=== PATIENT | male | born 1975 | race Caucasian/White ===

== ENCOUNTER 2023-07-25 13:18 | Inpatient (IN) | payer OTHER, SELFPAY ==
[2023-07-25] VITALS (13 sets, daily range): BP systolic 123–154; BP diastolic 77–87; PULSE 57–78; RESP 16–24; TEMP 36.4; O2SAT 94–100; BMI 25.9
--- NOTE | 2023-07-25 13:36 | PC.NURSE ---
Pt reports that this same eating then vomiting situation reoccurs approx q 6 months for the past 3 years. Has not had it evaluated. This is the longest episode to date
[2023-07-25 13:55] LABS: Add Manual Diff / Slide Review NO; Basophils Absolute Auto 100 /uL (0-100); Basophils Percent Auto 0.9 % (0-2); Eosinophils Absolute Auto 200 /uL (0-450); Eosinophils Percent Auto 1.5 % (2-4); Hematocrit 38.1 % (41-53); Hemoglobin 13.4 g/dL (13.5-17.5); Lymphocytes Absolute Auto 2600 /uL (1100-4500); Lymphocytes Percent Auto 24.6 % (25-40); Mean Corpuscular HGB Conc 35.2 % (30-36); Mean Corpuscular Hemoglobin 30.5 PG (26-34); Mean Corpuscular Volume 86.6 fL (80-100); Monocytes Absolute Auto 1400 /uL (0-900); Monocytes Percent Auto 13.6 % (3-14); Neutrophils Absolute Auto 6200 /uL (1500-7000); Neutrophils Percent Auto 59.4 % (50-75); Platelet Count 343 X10^3/uL (150-400); Red Blood Cell Count 4.39 X10^6/uL (4.5-5.9); Red Cell Distribution Width 13.2 % (11.6-14.8); White Blood Cell Count 10.5 X10^3/uL (4.5-11.0)
[2023-07-25 14:09] LABS: Alanine Aminotransferase 69 IU/L (<50); Albumin 3.7 g/dL (3.5-5.0); Albumin Globulin Ratio 0.9 (1.0-2.8); Alkaline Phosphatase 279 U/L (38-126); Aspartate Aminotransferase 59 IU/L (17-59); BUN Creatinine Ratio 25.4 (6-22); Bilirubin Total 0.9 mg/dL (0.2-1.3); Blood Urea Nitrogen 18 mg/dL (9-20); Calcium 8.8 mg/dL (8.4-10.2); Carbon Dioxide 27 mmol/L (22-32); Chloride 95 mmol/L (98-107); Estimated Glomerular Filt Rate > 60 mL/min (>60); Globulin 3.9 g/dL (1.7-4.1); Glucose 110 mg/dL (70-100); HEMOLYSIS 21 (0-50); Lipase 97 U/L (23-300); Sodium 131 mmol/L (137-145); Total Protein 7.6 g/dL (6.3-8.2)
--- NOTE | 2023-07-25 14:19 | ED.NAVMDI ---
HPI - Nausea/Vomiting/Diarrhea General Chief complaint: Nausea/Vomiting/Diarrhea Stated complaint: eats then V T-10/ Time Seen by Provider: 07/25/23 13:58 Source: patient Mode of arrival: Ambulatory History of Present Illness HPI Narrative: Patient here with . Complains 11 days of epigastric bloating discomfort with nausea and vomiting, nonbloody. No diarrhea. No cough cold or congestion. Symptoms worse with eating or drinking. Worse with laying flat. Feels better sitting up. Patient has been taking Pepcid and Prilosec. Patient states he is had for 5 of this episode in the past 3 years. Has not seen anyone for this problem. No history of endoscopy. No formal diagnosis of acid reflux or gastritis. Patient in no distress at this time. Denies any back pain or chest pain. Related Data Home Medications Medication Instructions Recorded Confirmed propranolol 10 mg tablet 30 mg PO DAILY 07/25/23 07/25/23 Previous Rx's Medication Instructions Recorded hydrochlorothiazide 25 mg tablet 25 mg PO QDAY #90 tabs 09/27/16 lisinopril 20 mg tablet 20 mg PO QDAY #90 tabs 09/27/16 Allergies Allergy/AdvReac Type Severity Reaction Status Date / Time No Known Drug Allergies Allergy Verified 07/25/23 13:30 Review of Systems Review of Systems Narrative: GENERAL: negative chills, fatigue, malaise, fever, sweats. HEENT: negative sinus pain, ear pain, sore throat RESPIRATORY: negative dyspnea, cough CARDIOVASCULAR: negative chest pain, palpitations GASTROINTESTINAL: Positive nausea, vomiting, abdominal pain, negative diarrhea : negative dysuria, frequency, hematuria MUSCULOSKELETAL: negative muscle or bony pain SKIN: negative rash, skin lesions NEUROLOGIC: negative weakness, numbness ROS Unobtainable: All systems reviewed & are unremarkable except as noted in HPI and below Patient History Surgical History History of cataract removal with insertion of prosthetic lens Family History Father Essential hypertension Smoker High cholesterol Mother Age: 79 Essential hypertension Heart disease Social History household members: spouse Smoking Status: Current every day smoker Smoking Status: Current every day smoker tobacco type: vaping Substance Use Type: does not use Exam Narrative Exam Narrative: GENERAL: in no distress, not toxic not dyspneic HEAD: Normocephalic. EYES: Pupils equal round ENT: Mucous membranes moist. NECK: Trachea midline. CARDIOVASCULAR: Regular rate and rhythm RESPIRATORY: Clear to auscultation. Breath sounds equal bilaterally. No wheezes, rales, or rhonchi. GASTROINTESTINAL: Abdomen soft, and flat. Mild epigastric tenderness. No pain out of proportion to exam.. No peritoneal signs. Bowel sounds are present. No CVA tenderness, slight tympanic on percussion EXTREMITIES: No gross deformities. BACK: No flank tenderness. NEURO: AOx4. SKIN: Warm and dry PSYCH: Not anxious, is cooperative Initial Vital Signs Initial Vital Signs: Vital Signs Temperature 97.5 F L 07/25/23 13:22 Pulse Rate 69 07/25/23 13:22 Respiratory Rate 16 07/25/23 13:22 Blood Pressure 149/81 H 07/25/23 13:22 Pulse Oximetry 97 07/25/23 13:22 Oxygen Delivery Method Room Air 07/25/23 13:22 Course Orders Ordered: Hydrocodone Bitart/Acetaminophen (Hydrocodone/Acet 5/325 Tablet) 1 tab PO Q4H PRN PRN Reason: Pain, Moderate (4-6) Hydrocodone Bitart/Acetaminophen (Hydrocodone/Acet 5/325 Tablet) 2 tab PO Q4H PRN PRN Reason: Pain, Severe (7-10) Hydromorphone HCl (Hydromorphone 0.5 Mg Inj) 0.5 mg IV Q2H PRN PRN Reason: Pain, Severe (7-10) Lactated Ringer's (Lactated Ringers) 1,000 mls @ 100 mls/hr IV CONT [facility] Last Infusion: 07/26/23 05:37 Dose: Infused Documented By: Admin: 07/25/23 18:56 Dose: 100 mls/hr Documented By: BT Ibuprofen (Ibuprofen 600 Mg Tablet) 600 mg PO Q6H PRN PRN Reason: Fever/Mild Pain (1-3) Labetalol HCl (Labetalol 20 Mg/4 Ml Syringe) 10 mg IV Q4H [facility] Last Admin: 07/26/23 05:54 Dose: Not Given Documented By: Admin: 07/26/23 02:29 Dose: Not Given Documented By: Admin: 07/25/23 21:42 Dose: 10 mg Documented By: AT Naloxone HCl (Naloxone 0.4 Mg/Ml Vial) 0.2 mg IV Q2MIN PRN PRN Reason: Opiate Reversal Ondansetron HCl (Ondansetron 4 Mg/2 Ml Inj) 4 mg IV Q8HR PRN PRN Reason: Nausea And Vomiting Discontinued Medications Al Hydrox/Mg Hydrox/Simethicone 20 ml/ Lidocaine HCl 15 ml 0 ml PO NOW ONE Stop: 07/25/23 14:19 Last Admin: 07/25/23 14:39 Dose: 35 ml Documented By: USHA Sodium Chloride (Normal Saline 0.9%) 1,000 mls @ 1,000 mls/hr IV BOLUS ONE Stop: 07/25/23 15:17 Last Infusion: 07/25/23 16:21 Dose: Infused Documented By: Admin: 07/25/23 14:40 Dose: 1,000 mls/hr Documented By: USHA POTASSIUM CHLORIDE IN WATER (Potassium Cl 10 Meq/100 Ml K[place]) 10 meq in 100 mls @ 100 mls/hr IV Q1H MARY Stop: 07/25/23 16:29 Last Infusion: 07/25/23 17:14 Dose: Infused Documented By: Admin: 07/25/23 15:32 Dose: 100 mls/hr Documented By: Infusion: 07/25/23 15:32 Dose: Infused Documented By: Admin: 07/25/23 14:39 Dose: 100 mls/hr Documented By: USHA Labetalol HCl (Labetalol 100 Mg/20ml Mdv) 10 mg IV Q4H MARY Last Admin: 07/26/23 07:24 Dose: Not Given Documented By: BT Labetalol HCl (Labetalol 20 Mg/4 Ml Syringe) 10 mg IV Q4H MARY Ondansetron HCl (Ondansetron 4 Mg Odt) 4 mg PO NOW PRN PRN Reason: Nausea And Vomiting Ondansetron HCl (Ondansetron 4 Mg/2 Ml Inj) 4 mg IV NOW PRN PRN Reason: Nausea And Vomiting Vital Signs Vital signs: Vital Signs - 8 hr 07/25/23 13:22 07/25/23 13:32 07/25/23 13:39 Temperature 97.5 F L Pulse Rate 69 60 Respiratory Rate 16 20 Blood Pressure 149/81 H 124/78 Pulse Oximetry 97 99 Oxygen Delivery Method Room Air 07/25/23 13:39 07/25/23 14:00 07/25/23 14:00 Temperature Pulse Rate 58 L 59 L Respiratory Rate 21 24 Blood Pressure 123/77 Pulse Oximetry 96 94 Oxygen Delivery Method 07/25/23 14:42 07/25/23 15:00 07/25/23 15:30 Temperature Pulse Rate 70 61 58 L Respiratory Rate 21 21 Blood Pressure Pulse Oximetry 99 97 Oxygen Delivery Method 07/25/23 16:00 Temperature Pulse Rate 57 L Respiratory Rate 21 Blood Pressure Pulse Oximetry 96 Oxygen Delivery Method MDM - Nausea/Vomiting/Diarrhea Lab Data 07/26/23 05:20 07/26/23 05:20 Labs: Lab Results 07/25/23 07/25/23 Range/Units 13:40 14:40 WBC 10.5 (4.5-11.0) X10^3/uL RBC 4.39 L (4.5-5.9) X10^6/uL Hgb 13.4 L (13.5-17.5) g/dL Hct 38.1 L (41-53) % MCV 86.6 (80-100) fL MCH 30.5 (26-34) PG MCHC 35.2 (30-36) % RDW 13.2 (11.6-14.8) % Plt Count 343 (150-400) X10^3/uL Neut % (Auto) 59.4 (50-75) % Lymph % (Auto) 24.6 L (25-40) % [place] % (Auto) 13.6 (3-14) % Eos % (Auto) 1.5 L (2-4) % Baso % (Auto) 0.9 (0-2) % Neut # (Auto) 6200 (2244-7627) /uL Lymph # (Auto) 2600 (7763-3775) /uL [place] # (Auto) 1400 H (0-900) /uL Eos # (Auto) 200 (0-450) /uL Baso # (Auto) 100 (0-100) /uL Sodium 131 L (137-145) mmol/L Potassium 2.7 L* (3.4-5.1) mmol/L Chloride 95 L (98-107) mmol/L Carbon Dioxide 27 (22-32) mmol/L BUN 18 (9-20) mg/dL Creatinine 0.71 (0.66-1.25) mg/dL Estimated GFR > 60 (>60) mL/min BUN/Creatinine Ratio 25.4 H (6-22) Glucose 110 H (70-100) mg/dL Calcium 8.8 (8.4-10.2) mg/dL Total Bilirubin 0.9 (0.2-1.3) mg/dL AST 59 (17-59) IU/L ALT 69 H (<50) IU/L Alkaline Phosphatase 279 H (38-126) U/L Total Protein 7.6 (6.3-8.2) g/dL Albumin 3.7 (3.5-5.0) g/dL Globulin 3.9 (1.7-4.1) g/dL Albumin/Globulin Ratio 0.9 L (1.0-2.8) Lipase 97 (23-300) U/L Ur Bilirubin Confirm Positive H (Negative) Urine RBC 0-1/hpf (0-5/HPF) Urine WBC 10-30/hpf H (0-5/HPF) Ur Squamous Epith Cells 0-1 /hpf (0-5/HPF) Urine Bacteria Few (2-10) H (None) Urine Dip Bedside Urine Glucose Negative Bedside Urine Bilirubin +++ 4 Bedside Urine Ketone +/- 5 Urine Specific [place] 1.015 Bedside Urine Occult Blood - Negative Bedside Urine pH 6.0 Bedside Urine Protein + 30 Bedside Urine Urobilinogen - Negative Bedside Urine Nitrite - Negative Bedside Urine Leukocytes +/- [address] scan - abdomen/pelvis: Radiologist's Impression: [address] [address] [address] Scan Report Signed Patient: Chi Schaefer MR#: [id number] : 1975 Acct:[id number] Age/Sex: 48 / M Date of Service: 07/25/23 Loc: ED Accession Number: [id number] Procedure: CT abdomen pelvis w con Ordering Provider: Terell Adams MD PROCEDURE: CT ABDOMEN PELVIS W CON INDICATIONS: IV contrast only/epigastric pain/vomiting TECHNIQUE: After the administration of intravenous contrast, axial sections acquired from the lung bases to the pubic symphysis. Coronal and sagittal reformats were performed. For radiation dose reduction, the following was used: automated exposure control, adjustment of mA and/or kV according to patient size. COMPARISON: None. FINDINGS: Image quality: Good Lower chest: Basal scarring and atelectasis. Mildly patulous distal esophagus is wall thickening, nonspecific appearance. Heart size is at the upper limit of normal. Solid organs: The liver appears unremarkable. Gallbladder is unremarkable. No pathologic dilation of the biliary system or pancreatic duct. No splenomegaly. Incidental 1.9 cm left adrenal nodule. No hydronephrosis. Vessels and lymph nodes: No abdominal aortic aneurysm. The main portal vein appears patent. No pathologic lymph nodes by size criteria. Bowel and peritoneum: Moderately dilated loops of small bowel. There is transition to under distended bowel in the right lower quadrant (coronal image 34). Focal mesenteric edema is present in this location. No drainable fluid collection. There is also mild wall thickening in this loop of bowel. Body wall: Small fat containing inguinal hernias Pelvis: Bladder is under distended. Bones: Degenerative changes, no acute or suspicious osseous finding. IMPRESSION: Small bowel obstruction. There is transition to under distended bowel in the right lower quadrant. Near the area transition, there is mild focal wall thickening and mesenteric edema. Consider surgical consultation. Incidental 1.9 cm adrenal nodule, consider nonurgent adrenal protocol imaging to confirm whether this is an adenoma. Other findings as above Dictated by: Mahesh Rodney M.D. on 07/25/2023 at 15:07 Approved by: Mahesh Rodney M.D. on 07/25/2023 at 15:13 X-ray abdomen: Radiologist's Impression: [address] [address] XRay Report Signed Patient: Chi Schaefer MR#: [id number] : 1975 Acct:[id number] Age/Sex: 48 / M Date of Service: 07/25/23 Loc: 215-1 Accession Number: [id number] Procedure: XR abdomen 1V Ordering Provider: Terell Adams MD PROCEDURE: XR ABDOMEN 1V INDICATIONS: Nasogastric tube insertion TECHNIQUE: One view of the abdomen acquired. COMPARISON: None. FINDINGS: Surgical changes and devices: NG tube in appropriate position with the side hole and distal and in the left upper quadrant below the diaphragm. Bowel: Bowel gas gas pattern suggests small bowel dilatation. Soft tissues: No suspicious abdominal calcifications. Visualized solid organ contours appear normal in size. Bones: No suspicious bony lesions. IMPRESSION: Appropriate position of NG tube. Dictated by: Angela Penn M.D. on 07/25/2023 at 18:47 Approved by: Angela Penn M.D. on 07/25/2023 at 18:47 [facility] Narrative Medical decision making narrative: Patient here with . Complains 11 days of epigastric bloating discomfort with nausea and vomiting, nonbloody. No diarrhea. No cough cold or congestion. Symptoms worse with eating or drinking. Worse with laying flat. Feels better sitting up. Patient has been taking Pepcid and Prilosec. Patient states he is had for 5 of this episode in the past 3 years. Has not seen anyone for this problem. No history of endoscopy. No formal diagnosis of acid reflux or gastritis. Patient in no distress at this time. Denies any back pain or chest pain. After history and exam CBC CMP lipase EKG CT abdomen pelvis [facility] CC: Abdominal pain Complicating co-morbidities: Likely history of GERD Data collected from: Patient and Medical records reviewed: No recent visit for this complaint Differential considered: Includes but not limited to pancreatitis acid reflux gastritis bowel obstruction Exam documented above, pertinent findings include: Mild epigastric tenderness Lab Test results independently reviewed as above. Pertinent findings: WBC 10.5 hemoglobin 13.4 platelets 343 sodium 131 potassium 2.7 BUN 18 creatinine 0.71 AST 59 ALT 69, alkaline phosphatase 279 Independently reviewed EKG sinus bradycardia rate [address] elevation or depression. Prolonged QT present QT 524 QTC 510 Imaging studies independently reviewed: CT abdomen pelvis small-bowel obstruction present X-ray abdomen appropriate position of the NG tube Consultations: 5:[address] Vega, general surgery, who would like patient to have NG tube. He will admit patient Treatments: Potassium chloride, normal saline Re-evaluations: 4:15 p.m. updated patient results. Small-bowel obstruction present. He does understand agrees for admission. No active vomiting. No NG tube at this time. Discussion: Appropriate for admission. Patient will need observation and possible surgical intervention for small bowel obstruction. Pain is controlled. No vomiting in the emergency department. Patient agrees for admission. Diagnosis: Small-bowel obstruction hypokalemia Discharge Plan Departure Patient Disposition: Admitted As Inpatient Clinical Impression: Small bowel obstruction, Acute hypokalemia Admit Date/Time: 07/25/23 17:13 Admit Provider: Gordon Vega
[2023-07-25 14:22] LABS: Potassium 2.7 mmol/L (3.4-5.1)
[2023-07-25] MEDS: MAG HYDROX/ALUMINUM/SIMETH SUS 20 ML, LIDOCAINE VISCOUS 2% 15 ML PO (14:39)
[2023-07-25] MEDS: POTASSIUM CHLORIDE IN WATER 10 MEQ/100 ML PIGGYBACK 100 MEQ IV ×2 (14:39→15:32)
[2023-07-25] MEDS: SODIUM CHLORIDE 0.9% 1,000 ML 1000 ML IV (14:40)
[2023-07-25 15:17] LABS: Bacteria Urine Few (2-10); RBC Urine 0-1/HPF (0-5/HPF); Squamous Epithelial Cell Urine 0-1 /HPF (0-5/HPF); WBC Urine 10-30/HPF (0-5/HPF)
[2023-07-25 15:18] LABS: Ictotest Urine Positive (Negative)
--- NOTE | 2023-07-25 17:12 | DI.RAD.S_ITS ---
PROCEDURE: XR ABDOMEN 1V INDICATIONS: Nasogastric tube insertion TECHNIQUE: One view of the abdomen acquired. COMPARISON: None. FINDINGS: Surgical changes and devices: NG tube in appropriate position with the side hole and distal and in the left upper quadrant below the diaphragm. Bowel: Bowel gas gas pattern suggests small bowel dilatation. Soft tissues: No suspicious abdominal calcifications. Visualized solid organ contours appear normal in size. Bones: No suspicious bony lesions. IMPRESSION: Appropriate position of NG tube. Dictated by: Angela Penn M.D. on 07/25/2023 at 18:47 Approved by: Angela Penn M.D. on 07/25/2023 at 18:47
--- NOTE | 2023-07-25 18:35 | PM.HP.1 ---
History of Present Illness History of Present Illness Date Patient Seen: 07/25/23 Time Patient Seen: 18:35 Chief complaint: eats then V T-10/SOB Narrative: Chi Schaefer is a 48-year-old man who presented to the ER today with about 10 days of generalized abdominal pain, nausea and vomiting. He states that he is had episodes like this several times over the past several years and it is usually associated with binge eating after he gets back [place] months. He reports that he has had some bowel function recently including some flatus but not much. Normally he has regular bowel movements without mucus. In the ER a CT was performed which was suggestive of a small-bowel obstruction. He has never had any prior surgeries. [facility] Surgical History History of cataract removal with insertion of prosthetic lens Family History Father Essential hypertension Smoker High cholesterol Mother Age: 79 Essential hypertension Heart disease Social History Smoking Status: Current every day smoker Meds Home Medications and Allergies Home Medications Medication Instructions Recorded Confirmed Type hydrochlorothiazide 25 mg tablet 25 mg PO QDAY #90 tabs 09/27/16 Rx lisinopril 20 mg tablet 20 mg PO QDAY #90 tabs 09/27/16 Rx Allergies Allergy/AdvReac Type Severity Reaction Status Date / Time No Known Drug Allergies Allergy Verified 07/25/23 13:30 Exam Vital Signs (past 8 hours): - 07/25/23 13:22 07/25/23 13:32 07/25/23 13:39 Temperature 97.5 F L Pulse Rate 69 60 Respiratory Rate 16 20 Blood Pressure 149/81 H 124/78 Pulse Oximetry 97 99 Oxygen Delivery Method Room Air 07/25/23 13:39 07/25/23 14:00 07/25/23 14:00 Temperature Pulse Rate 58 L 59 L Respiratory Rate 21 24 Blood Pressure 123/77 Pulse Oximetry 96 94 Oxygen Delivery Method 07/25/23 14:42 07/25/23 15:00 07/25/23 15:30 Temperature Pulse Rate 70 61 58 L Respiratory Rate 21 21 Blood Pressure Pulse Oximetry 99 97 Oxygen Delivery Method 07/25/23 16:00 07/25/23 16:30 07/25/23 17:00 Temperature Pulse Rate 57 L 64 68 Respiratory Rate 21 24 24 Blood Pressure Pulse Oximetry 96 100 100 Oxygen Delivery Method 07/25/23 18:00 Temperature Pulse Rate 78 Respiratory Rate 22 Blood Pressure Pulse Oximetry 99 Oxygen Delivery Method Oxygen Delivery Method Room Air Narrative Exam Narrative: Abdomen soft, moderately distended, nontender Objective Labs 07/25/23 13:40 07/25/23 13:40 Labs: Laboratory Results - last 24 hr 07/25/23 07/25/23 13:40 14:40 WBC 10.5 RBC 4.39 L Hgb 13.4 L Hct 38.1 L MCV 86.6 MCH 30.5 MCHC 35.2 RDW 13.2 Plt Count 343 Neut % (Auto) 59.4 Lymph % (Auto) 24.6 L [place] % (Auto) 13.6 Eos % (Auto) 1.5 L Baso % (Auto) 0.9 Neut # (Auto) 6200 Lymph # (Auto) 2600 [place] # (Auto) 1400 H Eos # (Auto) 200 Baso # (Auto) 100 Sodium 131 L Potassium 2.7 L* Chloride 95 L Carbon Dioxide 27 BUN 18 Creatinine 0.71 Estimated GFR > 60 BUN/Creatinine Ratio 25.4 H Glucose 110 H Calcium 8.8 Total Bilirubin 0.9 AST 59 ALT 69 H Alkaline Phosphatase 279 H Total Protein 7.6 Albumin 3.7 Globulin 3.9 Albumin/Globulin Ratio 0.9 L Lipase 97 Ur Bilirubin Confirm Positive H Urine RBC 0-1/hpf Urine WBC 10-30/hpf H Ur Squamous Epith Cells 0-1 /hpf Urine Bacteria Few (2-10) H Assessment & Plan Assessment and plan (1) Small bowel obstruction: Status: Acute Plan Chi is a 48-year-old man who appears to have small bowel obstruction a virgin abdomen. An NG tube has been placed. If he is not better in the morning I recommend we proceed with a diagnostic laparoscopy and possible exploratory laparotomy.
[2023-07-25] MEDS: LACTATED RINGERS 1,000 ML 100 ML IV (18:56)
[2023-07-25] MEDS: LABETALOL 20 MG/4 ML SYRINGE 10 MG IV (21:42)
[2023-07-26 02:34] VITALS: BP 130/74; PULSE 75; RESP 17; TEMP 36.3; O2SAT 96
[2023-07-26 02:39] VITALS: BP 130/74
[2023-07-26 05:48] LABS: Add Manual Diff / Slide Review NO; Basophils Absolute Auto 0 /uL (0-100); Basophils Percent Auto 0.4 % (0-2); Eosinophils Absolute Auto 100 /uL (0-450); Eosinophils Percent Auto 1.1 % (2-4); Hematocrit 36.1 % (41-53); Hemoglobin 12.6 g/dL (13.5-17.5); Lymphocytes Absolute Auto 2400 /uL (1100-4500); Lymphocytes Percent Auto 22.2 % (25-40); Mean Corpuscular Volume 88.7 fL (80-100); Monocytes Absolute Auto 1200 /uL (0-900); Monocytes Percent Auto 11.1 % (3-14); Neutrophils Absolute Auto 7000 /uL (1500-7000); Neutrophils Percent Auto 65.2 % (50-75); Platelet Count 314 X10^3/uL (150-400); Red Blood Cell Count 4.07 X10^6/uL (4.5-5.9); Red Cell Distribution Width 13.3 % (11.6-14.8); White Blood Cell Count 10.8 X10^3/uL (4.5-11.0)
[2023-07-26 06:42] LABS: BUN Creatinine Ratio 23.2 (6-22); Blood Urea Nitrogen 16 mg/dL (9-20); Calcium 8.6 mg/dL (8.4-10.2); Carbon Dioxide 27 mmol/L (22-32); Chloride 96 mmol/L (98-107); Estimated Glomerular Filt Rate > 60 mL/min (>60); Glucose 102 mg/dL (70-100); HEMOLYSIS < 15 (0-50); Potassium 2.8 mmol/L (3.4-5.1); Sodium 135 mmol/L (137-145)
[2023-07-26] MEDS: POTASSIUM CHLORIDE IN WATER 10 MEQ/100 ML PIGGYBACK 100 MEQ IV ×6 (08:04→13:26)
[2023-07-26 08:48] VITALS: BP 158/84; PULSE 65; RESP 16; TEMP 36.5; O2SAT 96
[2023-07-26 10:05] VITALS: BP 158/84; PULSE 65
[2023-07-26] MEDS: LABETALOL 20 MG/4 ML SYRINGE 10 MG IV ×2 (10:05→14:03)
--- NOTE | 2023-07-26 13:49 | PM.PN.1 ---
Subjective Subjective Date Patient Seen: 07/26/23 Time Patient Seen: 13:49 Interval history: Chi did very well overnight with no abdominal pain or nausea. He had just over 200 cc out of the NG tube. He has had some bowel movement and flatus. His only complaint is the NG tube Exam Vital Signs (past 8 hours): - 07/26/23 08:48 07/26/23 10:05 Temperature 97.7 F Pulse Rate 65 65 Respiratory Rate 16 Blood Pressure 158/84 H 158/84 H Pulse Oximetry 96 Oxygen Delivery Method Room Air Narrative Exam Narrative: Abdomen soft nontender Objective Labs 07/26/23 05:20 07/26/23 05:20 Labs: Laboratory Results - last 24 hr 07/25/23 07/25/23 07/26/23 13:40 14:40 05:20 WBC 10.5 10.8 RBC 4.39 L 4.07 L Hgb 13.4 L 12.6 L Hct 38.1 L 36.1 L MCV 86.6 88.7 MCH 30.5 31.0 MCHC 35.2 35.0 RDW 13.2 13.3 Plt Count 343 314 Neut % (Auto) 59.4 65.2 Lymph % (Auto) 24.6 L 22.2 L [place] % (Auto) 13.6 11.1 Eos % (Auto) 1.5 L 1.1 L Baso % (Auto) 0.9 0.4 Neut # (Auto) 6200 7000 Lymph # (Auto) 2600 2400 [place] # (Auto) 1400 H 1200 H Eos # (Auto) 200 100 Baso # (Auto) 100 0 Sodium 131 L 135 L Potassium 2.7 L* 2.8 L Chloride 95 L 96 L Carbon Dioxide 27 27 BUN 18 16 Creatinine 0.71 0.69 Estimated GFR > 60 > 60 BUN/Creatinine Ratio 25.4 H 23.2 H Glucose 110 H 102 H Calcium 8.8 8.6 Total Bilirubin 0.9 AST 59 ALT 69 H Alkaline Phosphatase 279 H Total Protein 7.6 Albumin 3.7 Globulin 3.9 Albumin/Globulin Ratio 0.9 L Lipase 97 Ur Bilirubin Confirm Positive H Urine RBC 0-1/hpf Urine WBC 10-30/hpf H Ur Squamous Epith Cells 0-1 /hpf Urine Bacteria Few (2-10) H PFSH Surgical History History of cataract removal with insertion of prosthetic lens Family History Father Essential hypertension Smoker High cholesterol Mother Age: 79 Essential hypertension Heart disease Social History household members: spouse Smoking Status: Current every day smoker Assessment & Plan Assessment and plan (1) Small bowel obstruction: Status: Acute Plan Obstruction seems to have resolved. DC NG tube and start clears. If he is able to advance his diet he could go home and follow up with me as an outpatient.
[2023-07-26 14:03] VITALS: BP 143/90; PULSE 64
[2023-07-26 15:57] LABS: Blood Urea Nitrogen 12 mg/dL (9-20); Calcium 8.4 mg/dL (8.4-10.2); Carbon Dioxide 25 mmol/L (22-32); Chloride 98 mmol/L (98-107); Estimated Glomerular Filt Rate > 60 mL/min (>60); Glucose 97 mg/dL (70-100); HEMOLYSIS < 15 (0-50); Potassium 3.2 mmol/L (3.4-5.1); Sodium 133 mmol/L (137-145)
[2023-07-26 16:41] VITALS: BP 159/91; PULSE 71; TEMP 36.6; O2SAT 99
[2023-07-26] MEDS: POTASSIUM CHLORIDE 20 MEQ TAB 40 MEQ PO (16:42)
--- NOTE | 2023-08-02 15:40 | P.DS_ITS ---
History of Present Illness History of Present Illness Chief complaint: eats then V T-10/SOB Narrative: Chi Schaefer is a 48-year-old man who presented to the ER today with about 10 days of generalized abdominal pain, nausea and vomiting. He states that he is had episodes like this several times over the past several years and it is usually associated with binge eating after he gets back from being [place] sea [place] for several months. He reports that he has had some bowel function recently including some flatus but not much. Normally he has regular bowel movements without mucus. In the ER a CT was performed which was suggestive of a small-bowel obstruction. He has never had any prior surgeries. Discharge Providers Provider Date of admission: 07/25/23 17:13 Discharge Date: 07/26/23 Primary care physician: Doctor Mary MD Discharge provider: Gordon Vega MD Summary Hospital Course Discharge Diagnosis: Small bowel resection, resolved Hospital Course: The patient was admitted with a diagnosis of a small-bowel obstruction. He would an NG-tube placed. By the next day he was passing bowel movements and flatus. The NG tube was removed and he was able to tolerate a diet. His sodium was between 130 and 132 but he had no clinical signs of hyponatremia. He was discharged home with instructions to follow-up as an outpatient. Exam Vital Signs (past 8 hours): Oxygen Delivery Method Room Air Objective Labs 07/26/23 05:20 07/26/23 15:39 [facility] Surgical History History of cataract removal with insertion of prosthetic lens Family History Father Essential hypertension Smoker High cholesterol Mother Age: 79 Essential hypertension Heart disease Social History household members: spouse Smoking Status: Current every day smoker Discharge Plan Discharge Plan Patient Disposition: Home Provider Discharge Comment: Schedule a follow up appointment with [facility] Discharge orders & Medications Prescriptions: Continued lisinopril 20 MG tablet 20 mg PO QDAY Qty: 90 1RF hydrochlorothiazide 25 MG tablet 25 mg PO QDAY Qty: 90 1RF propranolol 10 mg tablet 30 mg PO DAILY Follow up/Referrals: Doctor Hernandez MD [Primary Care Provider] - Visit Report/Discharge Packet Instructions: DI for Small Bowel Obstruction, DI for Hypokalemia Stand Alone Forms: Patient Portal/API, Stroke Signs & Symptoms Discharge Data Primary Care Provider: Miscellaneous,Doctor Discharges patient from system. Discharge Date/Time: 07/26/23 18:56
== END 2023-07-26 18:56 | disposition home or self-care (01) | DRG 390 ==
LOC: ED 16:25 → AC 17:14
PROVIDERS: Admitting Provider Surgery; Emergency Provider Emergency Medicine; Family Provider Ophthalmology; Referring Provider Emergency Medicine; Visit Provider Surgery
DX: K56.609 Unspecified intestinal obstruction, unspecified as to partial versus complete obstruction (principal); E87.6 Hypokalemia; F17.210 Nicotine dependence, cigarettes, uncomplicated
CPT/HCPCS: 36415; 74018; 74177; 80048; 80053; 81003; 81015; 83690; 85025; 87086; 93005; 96365; 99221; 99238; 99284; Q9967

== ENCOUNTER → 2023-08-23 09:39 | Outpatient (CLI) | payer OTHER, SELFPAY ==
[2023-07-25 19:30] VITALS: BMI 25.9
--- NOTE | 2023-08-23 09:39 | DI.CT.S_ITS ---
PROCEDURE: CT ABDOMEN PELVIS W CON INDICATIONS: follow up from last CT TECHNIQUE: After the administration of oral and intravenous contrast, axial sections were acquired from the lung bases to the pubic symphysis. Coronal and sagittal reformats were performed. For radiation dose reduction, the following was used: automated exposure control, adjustment of mA and/or kV according to patient size. COMPARISON:[facility], CT, CT ABDOMEN PELVIS W CON, 07/25/2023, 14:26. FINDINGS: Image quality: Excellent. Lung bases: Unremarkable. Heart: No significant findings. ABDOMEN: Liver: Unremarkable. Gallbladder: Unremarkable. Biliary ducts: Unremarkable. Pancreas: Unremarkable. Spleen: Unremarkable. 1.9 cm indeterminate left adrenal nodule again noted. Kidneys and Ureters: Unremarkable. Stomach and Bowel: Bowel gas pattern has improved, as the small bowel was quite dilated previously. There continues to be, however, a partial small bowel obstruction in the left abdomen, apparently secondary to adhesions or desmoplastic reaction in the mesentery. Reference image 58 of axial series 2. The presumed adhesions are noted on image 58/2. There is a transition point at this level. Just proximal to this, a loop is dilated, measuring 4.1 cm in diameter. Of note, most of the jejunum is not dilated. Rare diverticulosis. Colon otherwise unremarkable. Normal appendix. Peritoneum: No abnormal intraperitoneal fluid. No free air. Ventral Wall: No hernia. Abdominal Nodes: No retroperitoneal or mesenteric adenopathy by size criteria. Vessels: Aorta and inferior vena cava are normal in size. PELVIS: Pelvic Organs: Unremarkable. Bladder: Unremarkable. Pelvic Nodes: No enlarged lymph nodes. Miscellaneous: Small fat containing left inguinal hernia. Bones: Mild lumbar degenerative change. No lytic or blastic bony lesions. No compression fractures. IMPRESSION: 1. Recurrent or residual partial small bowel obstruction, likely secondary to adhesions or desmoplastic reaction in the mesentery. The appearance of the small bowel is definitely improved compared to the previous study. 2. 1.9 cm indeterminate left adrenal nodule again noted. Dictated by: Waqas Emerson M.D. on 08/23/2023 at 13:20 Approved by: Waqas Emerson M.D. on 08/23/2023 at 13:29
== END ==
LOC: CT 09:39
PROVIDERS: Family Provider Ophthalmology; Referring Provider Surgery; Visit Provider Surgery
DX: K56.609 Unspecified intestinal obstruction, unspecified as to partial versus complete obstruction (principal); E27.9 Disorder of adrenal gland, unspecified
CPT/HCPCS: 74177

== ENCOUNTER 2023-09-25 12:28 | Inpatient (IN) | payer OTHER, SELFPAY ==
[2023-07-25 19:30] VITALS: BMI 25.9
[2023-09-25] VITALS (10 sets, daily range): BP systolic 138–183; BP diastolic 88–124; PULSE 52–64; RESP 12–19; TEMP 36.1–36.6; O2SAT 93–99; BMI 25.1
--- NOTE | 2023-09-25 | PATH_ITS ---
[facility] Accession Number: [id number] No. of containers..02 Tissue . 01 Material submitted: . PART A: MESENTERIC - MESENTERIC TISSUE PART B: small bowel - SMALL BOWEL . 01 Diagnosis: A. Mesenteric Tissue, Biopsies: Fibroadipose tissue with no diagnostic abnormality. No evidence of neoplasm. . B. Small Bowel, Segmental Resection: Segment of small bowel with the following features: Multifocal punctate mucosal ulcers. Serosal adhesions. Mesenteric firmness with fibrosis and focal fat necrosis; no evidence of neoplasm. Thirteen mesenteric lymph nodes with reactive follicular hyperplasia and features of lymphatic outflow obstruction; no evidence of neoplasm. Negative for granulomas, dysplasia or malignancy. Please see comment. V 10/05/2023 1729 Local . 01 Comment: The area of mesenteric firmness is entirely submitted, and no neoplasm is identified. . The overall histologic findings raise a differential diagnosis including infection, drug/toxin-induced injury, volvulus, and, in the appropriate clinical setting, Crohn's disease. . As part of routine quality analyst, Dr. Woodson, hematopathologist, has reviewed the lymph nodes identified in this case (blocks B11-B15) and agrees there is reactive follicular hyperplasia, and no evidence of neoplasm. . 01 Electronically signed: . Theodore Davenport MD, PhD, Pathologist NPI- [id number] . 01 Gross description: . A. Received in formalin, labeled with the patient's name, , and mesenteric tissue, and consists of multiple irregular oquendo to yellow soft tissue fragments ranging from 1.4 x 0.5 x 0.3 cm to 1.6 x 0.9 x 0.7 cm. The largest fragment is inked blue, bisected, and the specimen is submitted entirely in cassette A1. B. Received in formalin, labeled with the patient's name, , and small bowel, and consists of an unoriented portion of small bowel measuring 19.5 cm in length by 2.5 cm in average diameter. The staple lines are differentially inked blue and black with the mesenteric margin inked green. The serosa is oquendo with a large roughened area measuring 6.2 cm in greatest dimension. Within this roughened area is a cystic structure on the serosa measuring 2.5 x 1.3 x 0.3 cm. The roughened and cystic area is inked orange. Opening the specimen reveals the lumen to contain and a small amount of oquendo mucoid material and a sessile, ulcerated lesion measuring 3.8 x 3.2 cm and located 5.6 cm from the nearest black-inked margin. The lesion grossly appears to extend into the submucosa but not into the wall. The remaining mucosa is oquendo and velvety with grossly edematous folds with no additional lesions identified. The sanchez average 0.3 cm thick. . Palpation reveals a oquendo, firm area located at the green-inked margin and is grossly separate from the bowel mass. 15 oquendo lymph node candidates are identified ranging from 0.3 cm to 1.0 cm in greatest dimension. . Technician Anatomic Pathology sections are submitted as follows: B1: Entire blue margin en face. B2: Entire black margin en face. B3: Area of green margin with pale oquendo, firm discoloration. B4: Technician Anatomic Pathology adipose tissue between lesion and green-inked margin. B5-B6: Lesion to normal. B7-B9: Additional lesion. B10: Unremarkable mucosa. B11: Single bisected lymph node candidate. B12: Single bisected lymph node candidate. B13: Four intact lymph node candidates. B14: Five intact lymph node candidates. B15: Four intact lymph node candidates. ([id number]) . The remaining firm area of adipose is submitted in cassettes B16-B18. ([id number]) /FRR 10/04/2023 2100 Local . 01 Pathologist provided ICD-10: K56.609, K63.3 . 01 CPT . 416692, 454092 Specimen Comment: A courtesy copy of this report has been sent to [phone] Performed at: 01 [facility] [address] [place] [address], [place], [place] [id number] MD Miguelangel Brown MD Phone: [phone]
[2023-09-25] MEDS: LACTATED RINGERS 1,000 ML 42 ML IV ×2 (12:47→15:27)
--- NOTE | 2023-09-25 13:59 | SUR.OPER ---
Supine on padded OR bed, head on pillow, arms secured on padded arm boards at <90 degrees abduction, legs uncrossed, safety belt at thigh, tape over blanket over lower legs.
--- NOTE | 2023-09-25 14:02 | PM.PREOP ---
Pre-operative Note COVID-19 COVID-19 status: Not tested Interval Note History & Physical reviewed/Exam performed by Physician: Yes Changes to H&P: No ASA Class (for procedural sedation): I
[2023-09-25] MEDS: PIPERACILLIN/TAZO 4.5 GM in SODIUM CHLORIDE 0.9% 100 ML IV (14:20)
[2023-09-25] MEDS: BUPIVACAINE 0.5% (PF) 30 ML, EPINEPHrine 0.15 MG INJ (14:37)
[2023-09-25] MEDS: ACETAMINOPHEN IV 1,000 MG/100 ML VIAL 400 MG IV (16:11)
[2023-09-25] MEDS: BUPIVACAINE LIPOSOME 266 MG/20 ML VIAL INJ (16:49)
--- NOTE | 2023-09-25 16:59 | P.OP_ITS ---
Operative Date/Time/Diagnoses Date of procedure: 09/25/23 Time of procedure: 17:10 Pre-op diagnosis: Intermittent recurrent small-bowel obstruction Post-op diagnosis: same Procedure & Clinicians Procedure: 1. Diagnostic laparoscopy converted to exploratory laparotomy 2. Small-bowel resection Same procedure as scheduled: Yes Surgeon: Gordon Vega Coordinator Of Health Services: Dale Wadsowrth Anesthesia Type: General Operative Notes Procedure in detail: The patient is a 48-year-old man who presented with recurrent intermittent small-bowel obstructive symptoms. A CT scan demonstrated an abnormality within the small bowel mesentery. He was consented for diagnostic laparoscopy. The patient was given Zosyn. The patient was brought to the operating room and placed on the table in the supine position. General endotracheal anesthesia was induced. The abdomen was prepped and draped in the usual fashion and a time-out was performed. A 1 cm infraumbilical incision was created and dissection was carried down to the base of the umbilical stalk which was grasped with a Chava clamp to elevate the abdominal wall. The fascia was scored in the midline and a Peon clamp was used appears the peritoneum. Next a Coley port was placed. A camera was inserted and there was no evidence of an injury from the entry. We could see some abnormal small bowel in the right abdomen. Additional 5 mm ports were placed in the right upper quadrant and left abdomen. The bowel was explored and we could see an adhesion of the sigmoid colon to a portion of the ileal mesentery as well as a tongue of omentum. We then converted to an exploratory laparotomy. We made a 9 cm midline incision around the umbilicus. We placed an Zander wound retractor. We then exteriorize the small bowel. Adhesions were lysed and some mesenteric tissue was biopsied and sent in formalin. There was an abnormal area near the terminal ileum with no evidence of obstruction and another abnormal area about 40 cm proximal to the terminal ileum. This proximal area had the transition point as well as some bulky lymph nodes. A small-bowel resection was performed. The mesenteric wedge was taken down to the root of the mesentery to incorporate some bulky lymph nodes. The LigaSure was used to divide most of the mesentery but the root of the wedge was tied with an 0 silk tie. The anastomosis was created using several firings of the linear IVELISSE cutting stapler with blue loads. The common enterotomy was closed in 2 layers using a running 3-0 Vicryl stitch and multiple interrupted 3-0 silk Lembert sutures to imbricate the suture line. The bowel was then returned to the abdomen. We injected some Marcaine into the fascia and closed the fascia with a 0 PDS suture. Skin was closed with maral. EBL: 30 mL Specimen: Small bowel and mesentery and mesenteric tissue Post-operative Condition: stable Disposition: PACU
--- NOTE | 2023-09-25 19:37 | PC.NURSE ---
Pt arrived via PACU prior to shift change. D.T. computer issues was unable to write note. Pt is alert and oriented, follows commands offers no c/o pain. Frustrated with not being able to void though did void 225cc after about 1/2 hour. Pt's dressings are cdi and intact,Abd soft and at this point nontender to the touch. Slight bowel tones right lower quadrant. BS clear, RR even and unlabored. Carin attentive at bedside. SCD's applied, VS's per protocol. Pt settling into the room.
[2023-09-25] MEDS: PROPRANOLOL 10 MG TABLET 20 MG PO (22:17)
[2023-09-25] MEDS: LACTATED RINGERS 1,000 ML 100 ML IV (22:20)
[2023-09-26 05:17] VITALS: BP 120/86; PULSE 57; RESP 19; TEMP 36.5; O2SAT 97
[2023-09-26] MEDS: HYDROCODONE/ACET 5/325 TABLET 1 TAB PO ×3 (05:23→21:41)
[2023-09-26] MEDS: LACTATED RINGERS 1,000 ML 100 ML IV ×3 (06:04→22:10)
[2023-09-26 06:44] LABS: Add Manual Diff / Slide Review NO; Basophils Absolute Auto 0 /uL (0-100); Basophils Percent Auto 0.1 % (0-2); Eosinophils Absolute Auto 0 /uL (0-450); Eosinophils Percent Auto 0.1 % (2-4); Hematocrit 33.3 % (41-53); Hemoglobin 11.4 g/dL (13.5-17.5); Lymphocytes Absolute Auto 1800 /uL (1100-4500); Lymphocytes Percent Auto 16.6 % (25-40); Mean Corpuscular HGB Conc 34.4 % (30-36); Mean Corpuscular Hemoglobin 30.7 PG (26-34); Mean Corpuscular Volume 89.2 fL (80-100); Monocytes Absolute Auto 1100 /uL (0-900); Neutrophils Absolute Auto 8000 /uL (1500-7000); Neutrophils Percent Auto 73.2 % (50-75); Platelet Count 342 X10^3/uL (150-400); Red Blood Cell Count 3.73 X10^6/uL (4.5-5.9); Red Cell Distribution Width 14.6 % (11.6-14.8)
[2023-09-26 06:51] LABS: BUN Creatinine Ratio 18.5 (6-22); Blood Urea Nitrogen 15 mg/dL (9-20); Calcium 8.9 mg/dL (8.4-10.2); Carbon Dioxide 26 mmol/L (22-32); Chloride 97 mmol/L (98-107); Estimated Glomerular Filt Rate > 60 mL/min (>60); Glucose 164 mg/dL (70-100); HEMOLYSIS < 15 (0-50); Potassium 4.2 mmol/L (3.4-5.1); Sodium 132 mmol/L (137-145)
[2023-09-26 08:00] VITALS: BP 152/89; PULSE 61; RESP 16; TEMP 37; O2SAT 97
[2023-09-26] MEDS: PROPRANOLOL 10 MG TABLET 20 MG PO ×2 (09:18→20:21)
[2023-09-26 12:00] VITALS: BP 156/93; PULSE 62; RESP 16; TEMP 35.9; O2SAT 99
--- NOTE | 2023-09-26 13:25 | P.PN_ITS ---
Subjective Subjective Date Patient Seen: 09/26/23 Time Patient Seen: 13:25 Interval history: Pain is under control. Tolerating some clear liquids. Exam Vital Signs (past 8 hours): - 09/26/23 08:00 Temperature 98.6 F Pulse Rate 61 Respiratory Rate 16 Blood Pressure 152/89 H Pulse Oximetry 97 Oxygen Flow Rate 0 Oxygen Delivery Method Room Air Oxygen Flow Rate 0 Const General: No acute distress Resp Effort & Inspection: normal respiratory effort Objective Labs 09/26/23 06:20 09/26/23 06:20 Labs: Laboratory Results - last 24 hr 09/26/23 06:20 WBC 11.0 RBC 3.73 L Hgb 11.4 L Hct 33.3 L MCV 89.2 MCH 30.7 MCHC 34.4 RDW 14.6 Plt Count 342 Neut % (Auto) 73.2 Lymph % (Auto) 16.6 L Licking % (Auto) 10.0 Eos % (Auto) 0.1 L Baso % (Auto) 0.1 Neut # (Auto) 8000 H Lymph # (Auto) 1800 Licking # (Auto) 1100 H Eos # (Auto) 0 Baso # (Auto) 0 Sodium 132 L Potassium 4.2 Chloride 97 L Carbon Dioxide 26 BUN 15 Creatinine 0.81 Estimated GFR > 60 BUN/Creatinine Ratio 18.5 Glucose 164 H Calcium 8.9 PFSH Surgical History History of cataract removal with insertion of prosthetic lens Family History Father Essential hypertension Smoker High cholesterol Mother Age: 79 Essential hypertension Heart disease Social History household members: spouse Smoking Status: Current every day smoker alcohol intake: current Assessment & Plan Assessment and plan (1) Small bowel obstruction: Status: Acute Plan Await more flatus before advancing diet Quality VTE Deep Vein Thrombosis/Pulmonary Embolism Present on Admission: No
[2023-09-26] MEDS: IBUPROFEN 600 MG TABLET PO (13:56)
[2023-09-26] MEDS: ENOXAPARIN 40 MG/0.4 ML SYRINGE SUBCUT (13:57)
--- NOTE | 2023-09-26 17:22 | PC.NURSE ---
Patients dressings are cdi, he has been up ambulating today. Most of his pain has been referred gas pain to his r.side and up his r.arm. Patient is finally feeling better and denies discomfort now. IVf infusing and patient tolerating clears well. is helpful with patient. He is resting comfortably.
[2023-09-26 18:00] VITALS: BP 128/77; PULSE 55; RESP 16; TEMP 36.6; O2SAT 97
[2023-09-26 21:00] VITALS: BP 138/90; PULSE 69; RESP 16; TEMP 36.7; O2SAT 96
[2023-09-27 00:52] VITALS: BP 136/92; PULSE 72; RESP 16; TEMP 37; O2SAT 97
[2023-09-27 04:00] VITALS: BP 140/78; PULSE 80; RESP 16; TEMP 37.1; O2SAT 98
[2023-09-27] MEDS: HYDROCODONE/ACET 5/325 TABLET 1 TAB PO ×2 (05:48→10:59)
[2023-09-27 08:00] VITALS: BP 150/98; PULSE 73; RESP 18; TEMP 36.9; O2SAT 95
[2023-09-27] MEDS: ENOXAPARIN 40 MG/0.4 ML SYRINGE SUBCUT (08:45)
[2023-09-27] MEDS: PROPRANOLOL 10 MG TABLET 20 MG PO (08:45)
[2023-09-27 12:00] VITALS: BP 156/101; PULSE 70; RESP 16; TEMP 36.5; O2SAT 97
[2023-09-27] MEDS: IBUPROFEN 600 MG TABLET PO (13:32)
--- NOTE | 2023-09-27 14:51 | P.DS_ITS ---
Discharge Providers Provider Date of admission: 09/25/23 12:28 Discharge Date: 09/27/23 Primary care physician: Doctor Mary MD Discharge provider: Gordon Vega MD Summary Hospital Course Discharge Diagnosis: Small bowel obstruction Hospital Course: The patient is a 48-year-old man who presented with recurrent intermittent partial small bowel obstructive symptoms. He was consented for a diagnostic laparoscopy and possible exploratory laparotomy. At surgery he was found to have adhesions involving his small bowel and abnormal appearance along with a clear transition point in the proximal ileum. The surgery was converted to an exploratory laparotomy and a small bowel was resection was performed at the site of the transition point. He recovered well and was discharged home on postop day 2. Exam Vital Signs (past 8 hours): - 09/27/23 08:00 09/27/23 12:00 Temperature 98.4 F 97.7 F Pulse Rate 73 70 Respiratory Rate 18 16 Blood Pressure 150/98 H 156/101 H Pulse Oximetry 95 97 Oxygen Delivery Method Room Air Oxygen Flow Rate 0 Objective Labs 09/26/23 06:20 09/26/23 06:20 [facility] Surgical History History of cataract removal with insertion of prosthetic lens Family History Father Essential hypertension Smoker High cholesterol Mother Age: 79 Essential hypertension Heart disease Social History household members: spouse Smoking Status: Current every day smoker alcohol intake: current Discharge Plan Discharge Plan Patient Disposition: Home Provider Discharge Comment: No lifting greater than 20 lb for 3 weeks. Okay to shower. [place] will be removed at follow up visit. Discharge orders & Medications Prescriptions: New hydrocodone-acetaminophen 5-325 mg tablet 1 tab PO Q8H PRN (Reason: pain) Qty: 14 0RF Continued lisinopril 20 MG tablet 20 mg PO QDAY Qty: 90 1RF hydrochlorothiazide 25 MG tablet 25 mg PO QDAY Qty: 90 1RF propranolol 10 mg tablet 30 mg PO DAILY Follow up/Referrals: Doctor Hernandez MD [Primary Care Provider] - Visit Report/Discharge Packet Stand Alone Forms: Patient Portal/API, Stroke Signs & Symptoms Discharge Data Primary Care Provider: Miscellaneous,Doctor Quality VTE Deep Vein Thrombosis/Pulmonary Embolism Present on Admission: No
--- NOTE | 2023-09-27 15:41 | CM.DANOTE ---
Initial DCP Assessment Note Reviewed EMR and team rounds for status updates. Pt is and resides independently with his spouse in Monday. No anticipated home d/c needs are identified at this time. Payor: Naresh PCP: Jesus Moses Attending: Dr. Vega Pt is a 48 year-old M admitted for recurring small bowel obstruction. He was taken to surgery and a small bowel resection was performed without complications. No therapies were required, no identified d/c needs per pt and provider. will transport home later today. Discharge Planning/Care Management CM Discharge Assessment Start: 09/27/23 15:39 Freq: Status: Active Protocol: Document 09/27/23 15:40 DPL (Rec: 09/27/23 15:41 DPL [id number]) Discharge Planning Assessment Assigned Scout Leaser HARPREET Quarles Advance Directives? No History Provided By Patient Has Patient been admitted in last 30 No days? Prior Living Arrangements House Household Members spouse Type of transporation used prior to Drives own vehicle admit Independent with ADL's Yes Is patient alert and oriented? Yes Comment N/A Caregiver for Another No Comment N/A Comment None. Discharge Plan Home Transportation Arrangement OP surgery f/u visit. Referrals Initiated None needed Review Status In Process Please Provide Date Initial DC 09/27/23 Assessment Was Performed Next Review Type Continued Stay Review Pre-Anesthesia Assessment Start: 09/20/23 14:31 Freq: Status: Complete Protocol: Document 09/20/23 14:31 CAB (Rec: 09/20/23 14:48 CAB [id number]) Pre-Anesthesia Assessment Patient Information Reviewed Via Chart Review Seen Specialist in Last 12 Months Yes Specialist Seen Emergency,General surgeon Primary Language Bhutanese Preferred Language Bhutanese Barriers to Learning None Anesthesia Review Requested No Supervisor Stone No Smoking Status Current every day smoker Substance Use Type does not use Pain Present Pain Reported History of Falling (Recent or History of No ) Patient is completely paralyzed or No completely immobile Mental Status Oriented to own ability Is patient on oxygen? No Hx Sleep Apnea No Currently Taking a Beta Ousmane Yes: Propranolol Anti-Coagulant Therapy No Cardiac Testing No Hx Pacemaker/ICD No Pacemaker Rep Required? No Comment SBO Admit to 07/25/23-07/16 resolved without surgical intervention Urinary Catheter Present No Hx Urinary Self Catheterization No Diabetes No Received a COVID vaccine? Yes Marital Status Lives With spouse Patient Discharge Plan Description Return Home Comment Lives on [facility] Advance Directives? No
[2023-09-27 15:52] VITALS: BP 161/94; PULSE 70; RESP 18; TEMP 37; O2SAT 96
[2023-09-27 15:58] LABS: Add Manual Diff / Slide Review NO; Basophils Absolute Auto 100 /uL (0-100); Basophils Percent Auto 0.6 % (0-2); Eosinophils Absolute Auto 200 /uL (0-450); Eosinophils Percent Auto 2.7 % (2-4); Hemoglobin 9.6 g/dL (13.5-17.5); Lymphocytes Absolute Auto 3700 /uL (1100-4500); Lymphocytes Percent Auto 42.8 % (25-40); Mean Corpuscular HGB Conc 34.2 % (30-36); Mean Corpuscular Hemoglobin 30.7 PG (26-34); Mean Corpuscular Volume 89.7 fL (80-100); Monocytes Absolute Auto 1000 /uL (0-900); Monocytes Percent Auto 11.6 % (3-14); Neutrophils Absolute Auto 3700 /uL (1500-7000); Neutrophils Percent Auto 42.3 % (50-75); Platelet Count 272 X10^3/uL (150-400); Red Blood Cell Count 3.12 X10^6/uL (4.5-5.9); Red Cell Distribution Width 14.6 % (11.6-14.8); White Blood Cell Count 8.7 X10^3/uL (4.5-11.0)
--- NOTE | 2023-09-27 16:13 | PC.NURSE ---
Day shift: Dr Vega made aware of Pt' large amount of red beet colored (Maroon) BM. Dr ordered CBS and H/H is 9.6/28. H/H yesterday 11.3/33.3. Pt asymptomatic. VS WNL. Plan is for Pt to d/c home after dinner today if he tolerates the regular diet. Pt has no complaints at this time. Spouse in room for support. Dressing remains CDI but w/ scant shadow drainage present.
--- NOTE | 2023-09-27 18:48 | PC.NURSE ---
Day shift: Paperwork singed and all questions answered. Tolerated dinner w/ no pain, nausea or emesis. Spouse in room for d/c teachings. Pt has all personal belongings. Pain well controlled per DEC. Midline and lap sites FRANCISCO J per Dr Vega. All show no s/s of infection. Left unit at approx 1845via WC. Spouse is driving him home. They live in [place] department chair.
== END 2023-09-27 18:50 | disposition home or self-care (01) | DRG 331 ==
PROVIDERS: Admitting Provider Surgery; Family Provider Ophthalmology; Referring Provider Surgery; Visit Provider Surgery
PROC: 0DT80ZZ Resection of Small Intestine, Open Approach (ICD-10-PCS; CPT 49320; principal; 2023-09-25 13:15)
DX: K56.50 Intestinal adhesions [bands], unspecified as to partial versus complete obstruction (principal); I10 Essential (primary) hypertension; F17.290 Nicotine dependence, other tobacco product, uncomplicated
CPT/HCPCS: 36415; 44120; 49320; 80048; 82962; 85025; C9290; G0379; J0131; J0171; J1100; J1170; J1650; J1885; J2250; J2405; J2543; J2704; J3010

== ENCOUNTER 2024-01-11 06:53 | Day surgery (SDC) | payer OTHER, SELFPAY ==
[2023-09-25 19:28] VITALS: BMI 25.1
--- NOTE | 2024-01-11 | PATH_ITS ---
[facility] Accession Number: [id number] No. of containers..03 Tissue . 01 Material submitted: . PART A: gastrointestinal site - ANTRUM PART B: colon - DESCENDING COLON POLYP PART C: colon - SIGMOID POLYP . 01 Diagnosis: A. Stomach, antrum, biopsy: Antral gastric mucosa with mild chronic and focal active gastritis. No H. Pylori like organisms identified (by the H/E and immunohistochemical stained slide sections). No intestinal metaplasia, dysplasia or malignancy identified. See comment: - B. Colon, descending, polyp biopsy: Tubular adenoma. - C. Colon, sigmoid, polyp biopsy: Benign polypoid colonic mucosa with benign lymphoid aggregate. Negative for dysplasia despite multiple levels assessment. -- COMMENT: H. Pylori immunohistochemical stain was performed on part A and is negative. TECHNICAL NOTE: THE IMMUNOHISTOCHEMICAL STAINS REPORTED WERE PERFORMED AT [facility] ([address], [facility] [address]). THEY WERE DEVELOPED AND THEIR PERFORMANCE CHARACTERISTICS DETERMINED BY [employer] THEY HAVE NOT BEEN CLEARED OR APPROVED BY THE [place] [employer]OD AND DRUG [employer]RATION, ALTHOUGH SUCH APPROVAL IS NOT REQUIRED FOR ANALYTE-SPECIFIC REAGENTS OF THIS TYPE. TXN 01/16/2024 1203 [facility] . 01 Electronically signed: . Dany Benton MD, Pathologist NPI- [id number] . 01 Gross description: . A. Received in formalin, labeled with two identifiers and antrum, are three oquendo soft tissue fragments measuring 0.2-0.6 cm in greatest dimension. Submitted entirely in cassette A1. B. Received in formalin, labeled with two identifiers and descending colon polyp, is a oquendo soft tissue fragment measuring 0.5 cm in greatest dimension. Submitted in cassette B1. C. Received in formalin, labeled with two identifiers and sigmoid polyp, is a oquendo soft tissue fragment measuring 0.6 cm in greatest dimension. Submitted in cassette C1. ([id number]) /FRR 01/13/2024 1629 Local . 01 Pathologist provided ICD-10: Z87.19, R10.9 . 01 CPT . 438688, 486299, 281907, G17039 Specimen Comment: A courtesy copy of this report has been sent to [phone] Performed at: 01 [facility] [address] [place] [address], [place], [place] [id number] MD Miguelangel Brown MD Phone: [phone]
[2024-01-11 07:07] VITALS: BP 168/98; PULSE 66; RESP 17; TEMP 36.3; O2SAT 99
--- NOTE | 2024-01-11 07:46 | PM.HP.1 ---
History of Present Illness History of Present Illness Date Patient Seen: 01/11/24 Time Patient Seen: 07:46 Chief complaint: [facility] Narrative: Chi is a 48-year-old man who presents for an EGD and colonoscopy. He underwent a small-bowel resection in September or chronic adhesive bowel obstruction. [facility] Surgical History History of cataract removal with insertion of prosthetic lens Family History Father Essential hypertension Smoker High cholesterol Mother Age: 79 Essential hypertension Heart disease Social History household members: spouse Smoking Status: Current every day smoker alcohol intake: current Meds Home Medications and Allergies Home Medications Medication Instructions Recorded Confirmed Type hydrochlorothiazide 25 mg tablet 25 mg PO QDAY #90 tabs 09/27/16 09/26/23 Rx lisinopril 20 mg tablet 20 mg PO QDAY #90 tabs 09/27/16 09/26/23 Rx propranolol 10 mg tablet 30 mg PO DAILY 07/25/23 09/25/23 History Allergies Allergy/AdvReac Type Severity Reaction Status Date / Time No Known Drug Allergies Allergy Verified 01/11/24 07:05 Exam Vital Signs (past 8 hours): - 01/11/24 07:07 Temperature 97.3 F L Pulse Rate 66 Respiratory Rate 17 Blood Pressure 168/98 H Pulse Oximetry 99 Oxygen Delivery Method Room Air Oxygen Delivery Method Room Air Const General: healthy appearing Resp Effort & Inspection: normal respiratory effort Assessment & Plan Assessment and plan (1) Colon cancer screening: Status: Acute Plan We reviewed the risks and benefits of EGD and colonoscopy and he would like to proceed.
[2024-01-11 08:34] VITALS: BP 123/79; PULSE 61; RESP 13; TEMP 36.3; O2SAT 94
--- NOTE | 2024-01-11 08:35 | PM.OP.EC ---
Operative Date/Time/Diagnoses Date of procedure: 01/11/24 Time of procedure: 08:35 Pre-op diagnosis: Abnormal CT scan and colon cancer screening Post-op diagnosis: same Procedure & Clinicians Study performed: EGD and colonoscopy Same procedure as scheduled: Yes Surgeon: Gordon Vega Procedure Notes Procedure in detail: Surgeon: Gordon Vega MD Anesthesia: Manuela Quiles CRNA Procedure in detail: A timeout was performed. A bite blocked was placed and monitors were attached to the patient. The patient was positioned in the left lateral decubitus position. Sedation was administered. Once the patient was sedated the endoscope was inserted through the bite block and passed through the esophagus and stomach and into the duodenum. No abnormalities were seen in the duodenal. We then withdrew the scope into the stomach. There was mild antritis and we took random biopsies of the antrum with cold forceps. The endoscope was retroflexed and no hiatal hernia was seen. The endoscope was straightned and withdrawn into the esophagus. No other abnormalities were seen. EGD findings: Antritis Next we repositioned the patient for a colonoscopy. A digital rectal exam was performed and was normal. The colonoscope was inserted and advanced to the cecum. The appendiceal orifice was identified and photographed. The terminal ileum was intubated and no abnormalities were seen. The scope was slowly withdrawn over greater than 6 minutes. There was a 5 mm polyp in the proximal descending colon removed with a cold snare. There was a 2 mm polyp in the sigmoid colon removed with a cold snare. The scope was retroflexed in the rectum and no other abnormalities were seen. Colonoscopy findings: 5 mm polyp in the proximal descending colon and 2 mm polyp in the sigmoid colon Total procedural EBL: 10 mL Scope withdrawal time: 11 minutes Sedation minutes: 34 minutes Post-procedure Disposition: PACU
[2024-01-11 08:38] VITALS: BP 122/82; PULSE 57; RESP 12; TEMP 36.3; O2SAT 95
[2024-01-11 08:45] VITALS: BP 134/87; PULSE 67; RESP 16; TEMP 36.3; O2SAT 96
== END 2024-01-11 09:08 | disposition home or self-care (01) ==
PROVIDERS: Family Provider Ophthalmology; Referring Provider Surgery; Visit Provider Surgery
PROC: 0DJ08ZZ Inspection of Upper Intestinal Tract, Via Natural or Artificial Opening Endoscopic (ICD-10-PCS; CPT 43235; principal; 2024-01-11 08:00)
PROC: 0DJD8ZZ Inspection of Lower Intestinal Tract, Via Natural or Artificial Opening Endoscopic (ICD-10-PCS; CPT 45378; 2024-01-11 08:00)
DX: Z12.11 Encounter for screening for malignant neoplasm of colon (principal); R93.3 Abnormal findings on diagnostic imaging of other parts of digestive tract; K29.50 Unspecified chronic gastritis without bleeding; D12.4 Benign neoplasm of descending colon; K63.5 Polyp of colon
CPT/HCPCS: 45385; 43239; J2704